=== PATIENT | female | born 1960 | race Caucasian/White ===

== ENCOUNTER 2017-02-13 15:10 | Emergency (ER) | payer OTHER ==
[2017-02-13 15:42] VITALS: BP 150/90
[2017-02-13] MEDS ORDERED: Ketorolac INJ* 30 MG/ML 1 ML VIAL IM ONE (16:48)
[2017-02-13] MEDS ORDERED: Ondansetron ODT TAB* 4 MG PO ONE (16:48)
--- NOTE | 2017-02-13 16:57 | UC ---
Headache HPI - HPI Summary HPI Summary: Pressure and headache starting 2 days ago, centered over R top of head Denies visual changes, fainting, or vomiting. Is concerned about the smell coming from her basement, says she has moved 6 times since 2004 and every time she starts smelling chemicals and seeing white powder and is worried someone is out to get her. Also felt bed vibrating last night without ability to sleep, and legs both felt numb until she rubbed them. No recent ST, fever, nasal congestion, or cough. - History Of Current Complaint Chief Complaint: UCHeadache Stated Complaint: HEADACHE Time Seen by Provider: 02/13/17 16:14 Hx Obtained From: Patient ?: No Onset/Duration: Gradual Onset, Lasting Days Currently Pain Is: Moderate Timing: Constant Character: Pressure Location of Headache: Diffuse Aggravating Factor: Nothing Allevating Factors: Nothing Associated Signs And Symptoms: Negative: Nausea, Vomiting, Fever - Allergies/Home Medications Allergies/Adverse Reactions: Allergies Allergy/AdvReac Type Severity Reaction Status Date / Time No Known Allergies Allergy Verified 02/13/17 15:19 Home Medications: Home Medications Enoxaparin Sodium [Lovenox] 100 mg SC DAILY 02/13/17 [History Confirmed 02/13/17 ] PMH/Surg Hx/FS Hx/Imm Hx - Additional Past Medical History Additional PMH: Difficult to obtain straightforward health history from pt. 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 - Family History Known Family History: Positive: Unknown - pt is unable to answer questions about health history. - Social History Alcohol Use: None Substance Use Type: None Smoking Status (MU): Never Smoked Tobacco - Immunization History Most Recent Influenza Vaccination: never Review of Systems Constitutional: Negative Skin: Negative Eyes: Negative ENT: Negative Respiratory: Negative Cardiovascular: Negative Gastrointestinal: Negative Genitourinary: Negative Motor: Negative Neurovascular: Negative Musculoskeletal: Negative Neurological: Headache, Numbness Psychological: Negative All Other Systems Reviewed And Are Negative: Yes Physical Exam Triage Information Reviewed: Yes Appearance: Well-Appearing, No Pain Distress, Well-Nourished Vital Signs: Initial Vital Signs Temp 97.8 F 02/13/17 15:23 Pulse 86 02/13/17 15:23 Resp 20 02/13/17 15:23 BP 150/90 02/13/17 15:23 Pulse Ox 98 02/13/17 15:23 Vital Signs Reviewed: Yes Eye Exam: Normal, Other - EOM-I, PERRL Eyes: Positive: Conjunctiva Clear ENT Exam: Normal ENT: Positive: Normal ENT inspection, Hearing grossly normal, Pharynx normal, TMs normal Dental: Positive: Gross Decay/Caries @. Negative: Percussion Tenderness @, Dental Fracture @ Neck exam: Normal Neck: Positive: Supple, Nontender, No Lymphadenopathy Respiratory Exam: Normal Respiratory: Positive: Chest non-tender, Lungs clear, Normal breath sounds, No respiratory distress, No accessory muscle use Cardiovascular Exam: Normal Cardiovascular: Positive: RRR, No Murmur Musculoskeletal Exam: Normal Musculoskeletal: Positive: Strength Intact, ROM Intact Neurological Exam: Normal Neurological: Positive: Alert Skin Exam: Normal Skin: Negative: rashes Headache Course/Dx - Differential Dx/Diagnosis Provider Diagnoses: Headache Discharge - Discharge Plan Condition: Stable Disposition: HOME Prescriptions: Ketorolac TAB (NF) [Toradol TAB (NF)] 10 mg PO TID #3 tab Patient Education Materials: Acute Headache (ED) Referrals: Jayjay Vazquez MD [Primary Care Provider] - Additional Instructions: If your headache improves tonight, you do not need to fill the prescription I sent for you. But it is there at the pharmacy if you need it. Please go to the emergency department if you develop new or severe symptoms.
== END 2017-02-13 17:18 | disposition home or self-care (01) ==
LOC: UCEAST 15:10 → MERGE 15:10 → UCEAST 17:18
DX: R51 Headache (principal)
CPT/HCPCS: 96372; 99202; G0463; J1885